=== PATIENT | male | born 1975 | race Caucasian/White ===

== ENCOUNTER 2017-02-16 11:04 | Emergency (ER) | payer OTHER ==
[~2017-02-16] VITALS: Ht 180.3 cm; Wt 84.0 kg
[~2017-02-16 11:04] MED LIST: PERCOCET 5/31 TABLET PO
[2017-02-16 11:13] VITALS: BP 150/76
== END 2017-02-16 12:53 | disposition home or self-care (01) ==
LOC: EME 11:04
DX: M25.561 Pain in right knee (principal)
CPT/HCPCS: 73564; 99281; 99284

== ENCOUNTER 2017-03-04 10:45 | Day surgery (SDC) | payer OTHER ==
[~2017-03-04] VITALS: Ht 180.3 cm; Wt 81.6 kg
[~2017-03-04 10:45] MED LIST changes: +MOTRIN400 MG PO
[2017-03-04 11:41] VITALS: BP 130/70
[2017-03-04 15:35] VITALS: BP 119/77
[2017-03-04 16:16] VITALS: BP 134/61
== END 2017-03-04 16:26 | disposition home or self-care (01) ==
LOC: SDC 10:45
PROC: 0SBC4ZZ Excision of Right Knee Joint, Percutaneous Endoscopic Approach (ICD-10-PCS; principal; 2017-03-04)
DX: M23.203 Derangement of unspecified medial meniscus due to old tear or injury, right knee (principal); M06.9 Rheumatoid arthritis, unspecified; F17.200 Nicotine dependence, unspecified, uncomplicated
CPT/HCPCS: J0131; J0171; J0690; J1100; J1170; J2250; J2405; J3010

== ENCOUNTER 2017-03-18 10:50 | Emergency (ER) | payer OTHER ==
[~2017-03-18] VITALS: Ht 180.3 cm; Wt 84.5 kg
[2017-03-18 12:36] LABS: HEMOGLOBIN 14.9 G/DL (12.5-16.6); MCH 30.8 PG (29.0-34.0); MCHC 33.9 G/DL (30.0-36.0); MCV 90.9 FL (86-99); PLATELET COUNT 357 K/uL (156-360); RBC DIS.WIDTH-CV 14.5 % (11.8-14.6); RBC DIS.WIDTH-SD 48.3 % (39-53); RED BLOOD COUNT 4.84 M/uL (4.00-5.50); WHITE BLOOD COUNT 13.6 K/uL (4.1-10.2)
[2017-03-18 12:45] LABS: CHLORIDE 107 mEq/L (99-109); POTASSIUM 4.3 mEq/L (3.7-5.4); SODIUM 140 mEq/L (136-147)
[2017-03-18 12:47] LABS: GLUCOSE 89 mg/dL (70-99)
[2017-03-18 12:51] LABS: CREATININE 0.9 mg/dL (0.6-1.3); GFR ESTIMATE (CALCULATED) > 59 mL/min/ (58.99-99999)
[2017-03-18 12:52] LABS: UREA NITROGEN (BUN) 14 mg/dL (9-23)
[2017-03-18] MEDS ORDERED: XARELTO15 MG PO (13:08)
[2017-03-18 14:00] VITALS: BP 141/78
== END 2017-03-18 14:00 | disposition home or self-care (01) ==
LOC: EME 10:50
PROVIDERS: Emergency Medicine
DX: I82.4Z1 Acute embolism and thrombosis of unspecified deep veins of right distal lower extremity (principal); F17.200 Nicotine dependence, unspecified, uncomplicated; Z79.82 Long term (current) use of aspirin
CPT/HCPCS: 80048; 85027; 99281; 99285